=== PATIENT | female | born 1965 | race Caucasian/White ===

== ENCOUNTER 2023-01-04 09:43 | Day surgery (SDC) | payer MEDICAID ==
[2023-01-01 12:46] LABS: HCG,QUAL RESULT NEGATIVE (NEGATIVE)
[~2023-01-04] VITALS: Ht 124.5 cm; Wt 95.3 kg
[2023-01-04] MEDS ORDERED: SEVOFLURANE 15 MIN GAS INH ONE (12:15)
[2023-01-04] MEDS ORDERED: ONDANSETRON HCL 4 MG/2 ML VIAL ONE (12:15)
[2023-01-04] MEDS ORDERED: PROPOFOL 200MG/ 20ML VIAL (DIPRIVAN) IV ONE (12:15)
[2023-01-04] MEDS ORDERED: LR 1,000 ML IV.SOLN IV ONE (12:15)
[2023-01-04] MEDS ORDERED: fentaNYL CITRATE/PF 100 MCG/2 ML AMP ONE (12:15)
[2023-01-04] MEDS ORDERED: NS IRRIG SOLN 1000 ML IR ONE (12:15)
[2023-01-04] MEDS ORDERED: METOCLOPRAMIDE HCL 10 MG/2 ML VIAL IVP PRN (13:00)
[2023-01-04] MEDS ORDERED: MEPERIDINE HCL/PF 25 MG/ML DISP.SYRIN IVP PRN (13:00)
[2023-01-04] MEDS ORDERED: ONDANSETRON HCL 4 MG/2 ML VIAL IVP PRN (13:00)
[2023-01-04] MEDS ORDERED: LR 1,000 ML IV SCH (13:00)
[2023-01-04] MEDS ORDERED: HYDROmorphone 1 MG/ML INJ. CARTRIDGE IVP PRN (13:00)
[2023-01-04 16:13] VITALS: BP_SYST 123
== END 2023-01-04 14:43 | disposition home or self-care (01) ==
LOC: SDS 09:43 → SMU 09:44 → SDS 14:43
PROVIDERS: ATTEND Obstetrics & Gynecology
DX: N95.0 Postmenopausal bleeding (principal); R93.89 Abnormal findings on diagnostic imaging of other specified body structures; I10 Essential (primary) hypertension; K21.9 Gastro-esophageal reflux disease without esophagitis; E66.9 Obesity, unspecified; F17.210 Nicotine dependence, cigarettes, uncomplicated; Z20.822 Contact with and (suspected) exposure to COVID-19; Z88.0 Allergy status to penicillin; Z91.038 Other insect allergy status; Z68.41 Body mass index [BMI] 40.0-44.9, adult
CPT/HCPCS: 84703; 87081; 58558; 36415; 87426; J2405; J2704; J3010; J7120